=== PATIENT | female | born 1995 ===

== ENCOUNTER 2017-09-23 14:46 | Emergency (ER) | payer OTHER ==
[2017-09-23 14:55] VITALS: BP 115/64; TEMP 97.9
--- NOTE | 2017-09-23 15:27 | C.PDOC ---
History Of Present Illness 21 year old female presents to the ED for a wound check and possible infection to left leg. Patient states she sustained a dog bite on 09/06 and had sutures removed last week on 09/16/17. Patient states she finished her antibiotic course. Patient states dogs has been licking the wound and her scab came off. She denies fever, chills, drainage, bleeding, itching or pain. Time Seen by Provider: 09/23/17 15:03 Chief Complaint (Nursing): Abnormal Skin Integrity History Per: Patient History/Exam Limitations: no limitations Onset/Duration Of Symptoms: Days Current Symptoms Are (Timing): Still Present Location Of Injury: Left: Leg Quality Of Symptoms: denies: Painful, Itching, Swollen, Draining Additional History Per: Patient Past Medical History Reviewed: Historical Data, Nursing Documentation, Vital Signs Vital Signs: Last Vital Signs Temp 97.9 F 09/23/17 14:52 Pulse 76 09/23/17 15:46 Resp 18 09/23/17 15:46 BP 115/64 09/23/17 14:52 Pulse Ox 99 09/23/17 16:37 - Medical History PMH: No Chronic Diseases Surgical History: No Surg Hx Family History: States: Unknown Family Hx - Social History Hx Alcohol Use: No Hx Substance Use: No Review Of Systems Constitutional: Negative for: Fever, Chills Skin: Positive for: Other (wound check to left leg) Physical Exam - Physical Exam Appears: Non-toxic, No Acute Distress Skin: Normal Color, Warm, Dry, Ecchymosis (left lateral calf: pink wound with epithelial tissue and scab. no bright erythema, swelling, discharge, or foul odor ) Extremity: Normal ROM, No Tenderness, Capillary Refill (less than 2 seconds ), No Deformity, No Swelling Neurological/Psych: Oriented x3, Normal Speech, Normal Cognition ED Course And Treatment O2 Sat by Pulse Oximetry: 99 (on RA) Pulse Ox Interpretation: Normal Medical Decision Making Medical Decision Making: Patient with recent leg wound already taken care of by podiatry at [facility]. Patient was treated with Augmentin. Patient states she had dog licking wound. Will give Keflex to take at home and advise to cover wound and not allow pet around wound. Disposition Counseled Patient/Family Regarding: Diagnosis, Need For Followup, Rx Given - Disposition Disposition: HOME/ ROUTINE Disposition Time: 15:26 Condition: GOOD Additional Instructions: : Keep area clean and dry. May wash gently with soap and water, do not use alcohol or iodine solution. Change dressing 1-2 times daily. Prescriptions: Cephalexin [cephalexin] 500 mg PO Q12 #10 cap Instructions: Wound Care (DC) Forms: [facility] ([place]ots[place]an) - POA Present On Arrival: None - Clinical Impression Clinical Impression: Skin irritation - PA / SKI MAKER / Resident Statement MD/DO has reviewed & agrees with the documentation as recorded. - Scribe Statement The provider has reviewed the documentation as recorded by the Scribe (Mary Melton) All medical record entries made by the Scribe were at my direction and personally dictated by me. I have reviewed the chart and agree that the record accurately reflects my personal performance of the history, physical exam, medical decision making, and the department course for this patient. I have also personally directed, reviewed, and agree with the discharge instructions and disposition.
[2017-09-23 15:47] VITALS: PULSE 76; RESP 18
[2017-09-23 16:28] VITALS: O2SAT 99
== END 2017-09-23 15:46 | disposition home or self-care (01) ==
LOC: C.ER 14:46
DX: L98.8 Other specified disorders of the skin and subcutaneous tissue (principal)